=== PATIENT | male | born 1945 | race Caucasian/White ===

== ENCOUNTER 2019-04-02 17:49 | Inpatient (IN) | payer OTHER ==
--- NOTE | 2019-04-02 17:50 | ED Physician Documentation ---
Chest Pain - HISTORIAN Historian: patient - HPI Stated Complaint: shortness of air Chief Complaint: Asthma Onset: days ago (2) Duration: none Last known Well Date: 03/30/19 Last Known Well Time: 08:00 Severity: mild Quality: tightness, aching Chest Pain Radiation: no radiation Chest Pain Signs/Symptoms: dyspnea. denies: nausea, vomiting, diaphoresis, cool extremities, dizziness Worsened By: nothing Relieved By: nothing Further Comments: yes (He states for the last almost week he has had increased shortness of air and feels pressure in his chest. He has known COPD and he has been using his neb machine. He is not sure if he has had a fever but has had increased nasal drainage) - ROS CONST: fever, chills EYES/ENT: denies: sore throat SKIN/ENDO: none NEURO/PSYCH: headache - PAST HX PR risk factors: other (COPD ) GI disease: none Lung disease: COPD Immunizations: UTD Allergies/Adverse Reactions: Allergies Allergy/AdvReac Type Severity Reaction Status Date / Time acetylcysteine Allergy Unknown Verified 04/02/19 18:05 Home Medications: Ambulatory Orders Medication Instructions Recorded Budesonide/Formoterol Fumarate 10.2 gm IH BID 02/16/13 [Symbicort 80-4.5 Mcg Inhaler] Combivent Respimat Inhal [place] 4 gm IH DAILY 02/16/13 Fluticasone Propionate [Flonase] 16 gm NS DAILY 02/16/13 Ranitidine HCl [Zantac] 150 mg PO BID PRN u2 02/16/13 - SOCIAL HX Smoking History: quit greater than 1 year Alcohol Use: none Drug Use: none - FAMILY HX Family HX: none - VITAL SIGNS Vital Signs: Vital Signs Temp Pulse Resp BP Pulse Ox 135/75 10/30/15 10:00 - REVIEWED ASSESSMENTS Nursing Assessment Reviewed: Yes Vitals Reviewed: Yes Progress - Progress Progress: 1900: discussed admission with Dr Keller he is agreeable DG Chest Pain Physical Exam - EXAM General Appearance: mild distress EENT: no signs of dehydration Neck: nml inspection Respiratory: resp.distress (mild - improved air movement mildly post neb ), decreased air movement, rhonchi CVS: reg. rate & rhythm, pulses equal Abdomen: soft, normal bowel sounds, non-tender Skin: warm/dry, normal color Extremities: non-tender, normal range of motion, no evidence of injury, no edema Neuro: oriented X3 Discharge Clincal Impression: Pneumonia Qualifiers: Pneumonia type: due to unspecified organism Laterality: unspecified laterality Lung location: unspecified part of lung Qualified Code(s): J18.9 - Pneumonia, unspecified organism COPD (chronic obstructive pulmonary disease) Qualifiers: COPD type: unspecified COPD Qualified Code(s): J44.9 - Chronic obstructive pulmonary disease, unspecified Condition: Fair Disposition: 09 ADMITTED INPATIENT Decision to Admit: [id number] Date of Decison to Admit: 04/02/19 Decision Time: 19:02
[2019-04-02] MEDS ORDERED: ASPIRIN 81 MG CHEW TAB PO ONE (17:51)
[2019-04-02] MEDS ORDERED: IPRATROPIUM/ALBUTEROL SULFATE 3 ML AMPUL.NEB NEB ONE (17:56)
[2019-04-02] MEDS ORDERED: methylPREDNISolone SOD SUCC 125 MG/2 ML VIAL IVP ONE (17:56)
[2019-04-02 18:04] LABS: BASOPHILS % 0.7 % (0.0-1.5)
--- NOTE | 2019-04-02 18:23 | Diagnostic Imaging Report ---
PATIENT MR#: [id number] PATIENT PATIENT NAME: JANET SOARES DATE OF : 1945 REFERRING PHYSICIAN: Elvira Clarke EXAM DATE: 04/02/2019 ACCESSION NUMBER: [id number] EXAM DESCRIPTION: CHEST 1VIEW Chest, one view History: Chest pain. Findings: The heart size is normal. The lungs are hyperinflated suggesting underlying emphysematous change. There is chronic elevation the right hemidiaphragm present. Possible small nodule seen within the left upper lobe. Right apical pleural thickening present. No pleural effusion or pneumothorax. Impression: 1. Emphysematous change with right apical pleural thickening. 2. Small left upper lobe pulmonary nodule suggested, correlation with previous imaging or follow-up n onemergent CT recommended. Read by: Dr. Dequan Arana Transcribed by: Transcribed Date: Electronically signed by: Dr. Dequan Arana Date signed: 04/02/2019 6:22:30 PM
[2019-04-02 18:27] LABS: eGFR (Non-African) > 60
[2019-04-02] MEDS ORDERED: cefTRIAXone SODIUM 1 GM in 0.9 % SODIUM CHLORIDE 50 ML IV ONE (19:03)
--- NOTE | 2019-04-02 21:07 | History and Physical Report ---
History of Present Illnes - History of Present Illness Reason for Visit: Cough/COPD exacerbation History of Present Illness: This is a 73 year old male admitted with cough and shortness of breath onset this afternoon. He says that he was generally feeling well, but began to cough and thought that he was going to vomit. He was more short of breath and came to the ER for evaluation. He has a history of lung cancer with removal of about 1/4 of one lung. He has not smoked for over 25 years. He has had a low grade fever and is febrile on presentation to the emergency room. - Past Medical History Cardiac: denies: CAD, CHF, HTN Pulmonary: Asthma, COPD [employer] AGENT: denies: CVA Gastrointestinal: GERD Psych: denies: Anxiety, Addictions Endocrine: Hyperthyroidism. denies: Diabetes - Past Surgical History Past Surgical History: Other (left upper lobectomy) - Past Social History Smoke: Quit Alcohol: None Drugs: None Lives: With Family, Other Domestic Violence: Negative - Health Maintenance Health Maintenance: Cholesterol, Other (refer to above) Influenza Vaccine: Current for this Influenza Season Pneumonia Vaccine: Yes Resuscitation Status: Resusciation Status Resuscitation Status Full Code - Unable to Obtain History Unable to Obtain: No Review of Systems - Review of Systems Constitutional: Fever, Chills, Weakness, Malaise Eyes: negative: pain ENT: negative: Ear Pain, Ear Discharge Respiratory: Cough, Shortness of Breath, SOB with Excertion. negative: Hemoptysis Cardiovascular: negative: Chest Pain Gastrointestinal: Nausea. negative: Vomiting Genitourinary: negative: Dysuria Musculoskeletal: negative: Neck Pain Skin: negative: Rash Neurological: Weakness. negative: Confusion, Seizures - Medications/Allergies Allergies/Adverse Reactions: Allergies Allergy/AdvReac Type Severity Reaction Status Date / Time acetylcysteine Allergy Unknown Verified 04/02/19 18:05 Current Inpatient Medications: Current Inpatient Medications Albuterol/Ipratropium (Duoneb) 3 ml NEB Q4 DEANNE Stop: 05/02/19 20:59 Enoxaparin Sodium (Lovenox) 40 mg SQ DAILY DEANNE Stop: 04/16/19 19:59 Fluticasone Propionate (Flonase Nasal [place]) spray IEN DAILY DEANNE Stop: 05/03/19 08:59 Sodium Chloride (Normal Saline) 1,000 mls @ 100 mls/hr IV Q10H DEANNE Stop: 05/02/19 19:14 Azithromycin 500 mg/ Sodium (Chloride) 250 mls @ 250 mls/hr IV Q24H DEANNE Stop: 04/06/19 20:59 Ceftriaxone Sodium 1 gm/ (Sodium Chloride) 50 mls @ 100 mls/hr IV DAILY DEANNE Stop: 05/03/19 08:59 Methylprednisolone Sodium Succinate (Solu-Medrol) 125 mg IVP DAILY DEANNE Stop: 05/03/19 08:59 Miscellaneous (Budesonide/Formoterol Fumarate [Symbicort 80-4.5 Mcg Inhaler]) 10.2 gm IH BID DEANNE Stop: 05/02/19 20:59 Exam - Exam Vital Signs: Vital Signs (72 hours) 04/02/19 04/02/19 04/02/19 17:49 17:50 19:35 Temperature 100.1 F H 97.8 F Pulse Rate 94 H Pulse Rate [ 88 87 Right Pulse ox] Respiratory 16 14 Rate Blood Pressure 148/64 114/52 [Right Arm] O2 Sat by Pulse 92 87 L Oximetry 04/02/19 19:54 Temperature 97.8 F Pulse Rate Pulse Rate [ 87 Right Pulse ox] Respiratory 14 Rate Blood Pressure 113/80 [Right Arm] O2 Sat by Pulse 96 Oximetry General: Alert, Oriented to Person, Oriented to Place, Oriented to Time, Cooperative, Thin HEENT: Atraumatic, PERRLA, EOMI, Mouth Mucous membr. moist/[place] Neck: No: Stridor, Rigidity Lungs: Speaks full Sentences, Respiratory Distress (mild), Wheezes, Prolonged Expiration Cardiovascular: Regular rate Murmur: No: Systolic Murmur Abdomen: Normal bowel sounds, Soft, No tenderness Genitourinary: No: Other Male Genitourinary: No: Other Female Genitourinary: No: Other Integumentary: Normal, [place], Warm, Dry Extremities: No clubbing, No cyanosis, No edema Neurological: Normal speech, Strength Equal Bilat Psych/Mental Status: Mental status NL - Laboratory Results Laboratory Results: Laboratory Results 04/02/19 04/02/19 04/02/19 17:57 17:57 18:50 WBC 15.10 H RBC 5.89 H Hgb 15.8 Hct 46.8 MCV 79.0 L MCH 26.8 L MCHC 33.8 RDW 14.1 Plt Count 290 Neut % (Auto) 79.7 H Lymph % (Auto) 8.7 L [place] % (Auto) 9.7 Eos % (Auto) 1.2 Baso % (Auto) 0.7 Neut # (Auto) 12.0 H Lymph # (Auto) 1.3 [place] # (Auto) 1.5 H Eos # (Auto) 0.2 Baso # (Auto) 0.1 D-Dimer 221 Sodium 142 Potassium 4.1 Chloride 99 Carbon Dioxide 32 H Anion Gap 15.1 BUN 14 Creatinine 1.00 Estimated Creat Clear 47 Est GFR ( Amer) > 60 Est GFR (Non-Af Amer) > 60 Glucose 114 H Lactate 1.4 Calcium 9.4 Total Bilirubin 1.7 H AST 30 ALT 17 Alkaline Phosphatase 90 CK-MB (CK-2) 2.8 Troponin I < 0.012 L Total Protein 8.5 H Albumin 4.7 Assessment/Plan - Assessment/Plan (1) COPD (chronic obstructive pulmonary disease) Status: Acute Current Visit: Yes Qualifiers: COPD type: unspecified COPD Qualified Code(s): J44.9 - Chronic obstructive pulmonary disease, unspecified Assessment: Continue nebulizers, IV steroids (2) GERD (gastroesophageal reflux disease) Status: Acute Current Visit: Yes Qualifiers: Esophagitis presence: esophagitis presence not specified Qualified Code(s): K21.9 - Gastro-esophageal reflux disease without esophagitis Assessment: Start protonix in face of history of GERD and steroid use (3) Hyperthyroidism Status: Acute Current Visit: Yes Assessment: He does not know the name of his medication that he takes for hyperthyroidism (4) Bronchitis Status: Acute Current Visit: No Assessment: Continue current antibiotics (5) DVT prophylaxis Status: Acute Current Visit: Yes Plan: Start Lovenox VTE Assessment - RISK FACTOR SCORE VTE RISK FACTOR SCORES: AGE OVER 60 YEARS, ACUTE RESPIRATORY FAILURE/SEVERE COPD - RISK VTE MODERATE RISK: SCORE OF 2 (RISK PROXIMAL DVT 2-4%) PROPHYAXIS NEEDED (On Lovenox)
[2019-04-02] MEDS ORDERED: AZITHROMYCIN 500 MG VIAL IV ONE (21:36)
[2019-04-02] MEDS ORDERED: BUDESONIDE 0.5MG/2ML AMPUL.NEB NEB ONE (21:36)
[2019-04-02] MEDS ORDERED: 0.9 % SODIUM CHLORIDE 250 ML IV ONE (21:37)
[2019-04-02] MEDS: AZITHROMYCIN 500 MG in 0.9 % SODIUM CHLORIDE 250 ML IV SCH (21:41)
[2019-04-02] MEDS: ENOXAPARIN SODIUM 40 MG/0.4 ML DISP.SYRIN SQ SCH (21:58)
[2019-04-02] MEDS: BUDESONIDE IH SCH (22:14)
[2019-04-02] MEDS: [UNRECOGNIZED DRUG - OTHER] IH SCH (22:14)
[2019-04-02] MEDS: IPRATROPIUM/ALBUTEROL SULFATE 3 ML AMPUL.NEB NEB SCH (22:14)
[2019-04-02] MEDS: 0.9 % SODIUM CHLORIDE 1,000 ML IV SCH (22:14)
[2019-04-02] MEDS: FORMOTEROL FUMARATE IH SCH (22:14)
[2019-04-02 22:38] LABS: APPEARANCE,URINE CLEAR (CLEAR); COLOR,URINE YELLOW (YELLOW); OCCULT BLOOD,URINE NEGATIVE (NEGATIVE); PH URINE 6.5 (5.0 - 8.0)
[2019-04-03 00:20] VITALS: BMI 18.3
[2019-04-03] MEDS: IPRATROPIUM/ALBUTEROL SULFATE 3 ML AMPUL.NEB NEB SCH ×6 (02:05→20:34)
[2019-04-03] MEDS: 0.9 % SODIUM CHLORIDE 1,000 ML IV SCH ×2 (02:06→17:43)
[2019-04-03] MEDS: PANTOPRAZOLE SODIUM 40 MG TABLET.DR PO SCH (05:22)
[2019-04-03] MEDS: [UNRECOGNIZED DRUG - OTHER] IH SCH ×2 (05:23→09:55)
[2019-04-03] MEDS: FORMOTEROL FUMARATE IH SCH ×2 (05:23→09:55)
[2019-04-03] MEDS: BUDESONIDE IH SCH ×2 (05:23→09:55)
[2019-04-03 05:41] LABS: BASOPHILS % 0.1 % (0.0-1.5); NEUTROPHILS # 6.1 # k/uL (1.4-7.7)
[2019-04-03 05:42] LABS: eGFR (Non-African) > 60
--- NOTE | 2019-04-03 07:40 | Diagnostic Imaging Report ---
PATIENT MR#: [id number] PATIENT PATIENT NAME: JANET SOARES DATE OF : 1945 REFERRING PHYSICIAN: Porter Keller EXAM DATE: 04/03/2019 ACCESSION NUMBER: [id number] EXAM DESCRIPTION: CHEST 2VIEW Chest, PA and lateral History: Emphysema Findings: Lungs are hyper-inflated, consistent with emphysema. Heart size and pulmonary vascularity a re normal. There is no pneumothorax or pleural effusion. 10 mm density superimposes the left upper lobe. Malignancy is no t excluded and computed tomography is recommended for further evaluation. Impression: Left upper lobe density; further evaluation recommended. Emphysema. Read by: Dr. Brian Alfaro Transcribed by: Transcribed Date: Electronically signed by: Dr. Brian Alfaro Date signed: 04/03/2019 7:39:30 AM
[2019-04-03] MEDS ORDERED: cefTRIAXone SODIUM 1 GM INJ ONE (09:33)
[2019-04-03] MEDS ORDERED: 0.9 % SODIUM CHLORIDE 50 ML IV ONE (09:33)
[2019-04-03] MEDS: ENOXAPARIN SODIUM 40 MG/0.4 ML DISP.SYRIN SQ SCH (09:43)
[2019-04-03] MEDS: cefTRIAXone SODIUM 1 GM in 0.9 % SODIUM CHLORIDE 50 ML IV SCH (09:48)
[2019-04-03] MEDS: methylPREDNISolone SOD SUCC 125 MG/2 ML VIAL IVP SCH (09:57)
--- NOTE | 2019-04-03 11:00 | Inpatient Progress Note ---
Subjective - Required Recertification Statement I anticipate X number of days because-include discharge plan: 1 - Review of Systems Events since last encounter: Patient is breathing better today. His chest X ray shows more clearly a left upper lobe mass that was not clearly delineated last night. His labs look good today. He has not been up and ambulated. Radiology recommends a CT chest to evaluate this further. General: Denies: Chills, Night Sweats HEENT: Denies: Head Aches Pulmonary: Dyspnea, Cough Cardiovascular: Denies: Chest Pain Gastrointestinal: Denies: Nausea, Vomiting Genitourinary: Denies: Dysuria Musculoskeletal: Denies: Neck Pain Neurological: Denies: Weakness Objective - Exam Vitals and I&O: Vital Signs Temp 97.7 F 04/03/19 09:18 Pulse 78 04/03/19 09:18 Resp 22 04/03/19 09:18 BP 113/65 04/03/19 09:18 Pulse Ox 99 04/03/19 09:18 Intake & Output 04/02/19 04/02/19 04/03/19 11:59 23:59 11:59 Intake Total 360 1760 Output Total 300 900 Balance 60 860 Weight 49.895 kg Intake: IV 1100 Right Antecubital 1100 Oral 360 660 Output: Urine 300 900 Other: Voiding Method Toilet Toilet # Voids 2 # Bowel Movements 0 General: Alert, Oriented to Person, Oriented to Place, Oriented to Time HEENT: Atraumatic, PERRLA Neck: Supple Lungs: Wheezes, Prolonged Expiration Cardiovascular: Regular rate, Normal S1, Normal S2 Abdomen: Normal bowel sounds Extremities: No clubbing, No cyanosis, No edema Skin: Normal, [place], Warm Neurological: Normal speech Psych/Mental Status: Mental status NL - Results Results: Laboratory Results WBC 6.80 K/ul (4.00-12.00) 04/03/19 05:10 RBC 4.57 M/ul (3.90-5.20) 04/03/19 05:10 Hgb 12.5 g/dL (12.0-18.0) 04/03/19 05:10 Hct 36.3 % (37.0-53.0) L 04/03/19 05:10 MCV 79.0 fl (80.0-100.0) L 04/03/19 05:10 MCH 27.4 pg (28.0-34.0) L 04/03/19 05:10 MCHC 34.5 g/dL (30.0-36.0) 04/03/19 05:10 RDW 14.2 % (11.3-14.3) 04/03/19 05:10 Plt Count 229 K/mm3 (130-400) 04/03/19 05:10 Neut % (Auto) 88.9 % (39.0-79.0) H 04/03/19 05:10 Lymph % (Auto) 7.6 % (16.0-50.0) L 04/03/19 05:10 [place] % (Auto) 2.7 % (0.0-11.0) 04/03/19 05:10 Eos % (Auto) 0.7 % (0.0-6.8) 04/03/19 05:10 Baso % (Auto) 0.1 % (0.0-1.5) 04/03/19 05:10 Neut # (Auto) 6.1 # k/uL (1.4-7.7) 04/03/19 05:10 Lymph # (Auto) 0.5 # k/uL (0.6-4.0) L 04/03/19 05:10 [place] # (Auto) 0.2 # k/uL (0.0-0.9) 04/03/19 05:10 Eos # (Auto) 0.1 # k/uL (0.0-0.6) 04/03/19 05:10 Baso # (Auto) 0.0 # k/uL (0.0-0.5) 04/03/19 05:10 D-Dimer 221 ng/mL (6.0-682) 04/02/19 17:57 Sodium 138 mmol/L (137-145) 04/03/19 05:10 Potassium 4.3 mmol/L (3.5-5.1) 04/03/19 05:10 Chloride 106 mmol/L (98-107) 04/03/19 05:10 Carbon Dioxide 24 mmol/L (22-30) 04/03/19 05:10 Anion Gap 12.3 04/03/19 05:10 BUN 15 mg/dL (9-20) 04/03/19 05:10 Creatinine 0.69 mg/dL (0.66-1.25) 04/03/19 05:10 Estimated Creat Clear 69 04/03/19 05:10 Est GFR ( Amer) > 60 (60-) 04/03/19 05:10 Est GFR (Non-Af Amer) > 60 (60-) 04/03/19 05:10 Glucose 151 mg/dL (74-106) H 04/03/19 05:10 Lactate 1.4 U/L (0.7-2.1) 04/02/19 18:50 Calcium 8.5 mg/dL (8.4-10.2) 04/03/19 05:10 Total Bilirubin 0.9 mg/dL (0.2-1.3) 04/03/19 05:10 AST 25 U/L (15-46) 04/03/19 05:10 ALT 13 U/L (0-50) 04/03/19 05:10 Alkaline Phosphatase 61 U/L (38-126) 04/03/19 05:10 CK-MB (CK-2) 2.8 ng/mL (0.0-5.6) 04/02/19 17:57 Troponin I < 0.012 ng/mL (0.012-0.034) L 04/02/19 17:57 Total Protein 5.8 g/dL (6.3-8.2) L 04/03/19 05:10 Albumin 3.3 g/dL (3.5-5.0) L 04/03/19 05:10 Urine Color Yellow (YELLOW) 04/02/19 19:25 Urine Appearance Clear (CLEAR) 04/02/19 19:25 Urine pH 6.5 (5.0 - 8.0) 04/02/19 19:25 Ur Specific [place] 1.020 (1.010-1.030) 04/02/19 19:25 Urine Protein 1+ mg/dL (NEGATIVE) H 04/02/19 19:25 Urine Ketones Negative mg/dL (NEGATIVE) 04/02/19 19:25 Urine Occult Blood Negative (NEGATIVE) 04/02/19 19:25 Urine Nitrite Negative (NEGATIVE) 04/02/19 19:25 Urine Bilirubin 1+ (NEGATIVE) H 04/02/19 19:25 Urine Urobilinogen 2.0 Eu (0.2-1.0) H 04/02/19 19:25 Ur Leukocyte Esterase Negative (NEGATIVE) 04/02/19 19:25 Urine Glucose Negative mg/dL (NEGATIVE) 04/02/19 19:25 Assessment/Plan - Assessment/Plan (1) COPD (chronic obstructive pulmonary disease) Status: Acute Current Visit: Yes Qualifiers: COPD type: unspecified COPD Qualified Code(s): J44.9 - Chronic obstructive pulmonary disease, unspecified (2) GERD (gastroesophageal reflux disease) Status: Acute Current Visit: Yes Qualifiers: Esophagitis presence: esophagitis presence not specified Qualified Code(s): K21.9 - Gastro-esophageal reflux disease without esophagitis (3) Hyperthyroidism Status: Acute Current Visit: Yes (4) Bronchitis Status: Acute Current Visit: No Assessment: Continue current antibiotics (5) DVT prophylaxis Status: Acute Current Visit: Yes Assessment: On Lovenox (6) Pulmonary nodule Status: Acute Current Visit: Yes Assessment: CT chest with contrast
--- NOTE | 2019-04-03 11:57 | Diagnostic Imaging Report ---
PATIENT MR#: [id number] PATIENT PATIENT NAME: JANET SOARES DATE OF : 1945 REFERRING PHYSICIAN: Porter Keller EXAM DATE: 04/03/2019 ACCESSION NUMBER: [id number] EXAM DESCRIPTION: CT CHEST W/ CONTRAST ADDENDUM: The left lung nodules most likely a malignant nodule. PET CT or biopsy is recommended Exam: CT chest with contrast. History: Abnormal chest x-ray. Axial images through the thorax are submitted along with sagittal and coronal reformatted images. Lung antunez are hyperaerated with flattening of the diaphragms noted. Linear scarring in the right l ower lobe is noted. A lobulated nodular density in the left upper lobe measures 1.7 x 1.5 by 1.3 cm in size. The thoraci c aorta is associated with atherosclerotic plaque and is of normal caliber. The mainstem pulmonary artery is al so normal in caliber. No significant mediastinal or axillary adenopathy is noted. No bony abnormalities are iden tified. Impression: Emphysematous changes. Lobulated nodular density in the left upper lobe is measured above. Linear scarring in the right lower lobe. No significant mediastinal adenopathy is noted. Read by: Dr. Stanton Way Transcribed by: Transcribed Date: Electronically signed by: Dr. Stanton Way Date signed: 04/05/2019 3:35:40 PM
[2019-04-03] MEDS: FLUTICASONE PROPIONATE 120 SPRAY/16 GR BOTTLE IEN SCH (13:41)
--- NOTE | 2019-04-03 16:34 | Inpatient Progress Note ---
Subjective - Required Recertification Statement I anticipate X number of days because-include discharge plan: 1 - Review of Systems Events since last encounter: CT of the chest shows what appears to be a lung cancer in the left upper lobe. Initial read simply stated that it was a "lobulated nodular density in the left upper lobe", howver when I called radiology back, I spoke to Stanton Way MD, and he stated that this appears to be a malignancy. I discussed this with the pat you, his , and their daughter Eva. I also called and spoke to Dr. Pulido to make her aware of these findings and faxed her a copy of the CT scan. Objective - Exam Vitals and I&O: Vital Signs Temp 98.1 F 04/03/19 14:00 Pulse 89 04/03/19 16:00 Resp 20 04/03/19 14:00 BP 107/53 04/03/19 14:00 Pulse Ox 97 04/03/19 14:00 Intake & Output 04/02/19 04/03/19 04/03/19 23:59 11:59 23:59 Intake Total 360 1760 1180 Output Total 300 900 300 Balance 60 860 880 Weight 49.895 kg Intake: IV 1100 700 Right Antecubital 1100 700 Oral 360 660 480 Output: Urine 300 900 300 Other: Voiding Method Toilet Toilet Toilet # Voids 2 # Bowel Movements 0 - Results Results: Laboratory Results WBC 6.80 K/ul (4.00-12.00) 04/03/19 05:10 RBC 4.57 M/ul (3.90-5.20) 04/03/19 05:10 Hgb 12.5 g/dL (12.0-18.0) 04/03/19 05:10 Hct 36.3 % (37.0-53.0) L 04/03/19 05:10 MCV 79.0 fl (80.0-100.0) L 04/03/19 05:10 MCH 27.4 pg (28.0-34.0) L 04/03/19 05:10 MCHC 34.5 g/dL (30.0-36.0) 04/03/19 05:10 RDW 14.2 % (11.3-14.3) 04/03/19 05:10 Plt Count 229 K/mm3 (130-400) 04/03/19 05:10 Neut % (Auto) 88.9 % (39.0-79.0) H 04/03/19 05:10 Lymph % (Auto) 7.6 % (16.0-50.0) L 04/03/19 05:10 [place] % (Auto) 2.7 % (0.0-11.0) 04/03/19 05:10 Eos % (Auto) 0.7 % (0.0-6.8) 04/03/19 05:10 Baso % (Auto) 0.1 % (0.0-1.5) 04/03/19 05:10 Neut # (Auto) 6.1 # k/uL (1.4-7.7) 04/03/19 05:10 Lymph # (Auto) 0.5 # k/uL (0.6-4.0) L 04/03/19 05:10 [place] # (Auto) 0.2 # k/uL (0.0-0.9) 04/03/19 05:10 Eos # (Auto) 0.1 # k/uL (0.0-0.6) 04/03/19 05:10 Baso # (Auto) 0.0 # k/uL (0.0-0.5) 04/03/19 05:10 D-Dimer 221 ng/mL (6.0-682) 04/02/19 17:57 Sodium 138 mmol/L (137-145) 04/03/19 05:10 Potassium 4.3 mmol/L (3.5-5.1) 04/03/19 05:10 Chloride 106 mmol/L (98-107) 04/03/19 05:10 Carbon Dioxide 24 mmol/L (22-30) 04/03/19 05:10 Anion Gap 12.3 04/03/19 05:10 BUN 15 mg/dL (9-20) 04/03/19 05:10 Creatinine 0.69 mg/dL (0.66-1.25) 04/03/19 05:10 Estimated Creat Clear 69 04/03/19 05:10 Est GFR ( Amer) > 60 (60-) 04/03/19 05:10 Est GFR (Non-Af Amer) > 60 (60-) 04/03/19 05:10 Glucose 151 mg/dL (74-106) H 04/03/19 05:10 Lactate 1.4 U/L (0.7-2.1) 04/02/19 18:50 Calcium 8.5 mg/dL (8.4-10.2) 04/03/19 05:10 Total Bilirubin 0.9 mg/dL (0.2-1.3) 04/03/19 05:10 AST 25 U/L (15-46) 04/03/19 05:10 ALT 13 U/L (0-50) 04/03/19 05:10 Alkaline Phosphatase 61 U/L (38-126) 04/03/19 05:10 CK-MB (CK-2) 2.8 ng/mL (0.0-5.6) 04/02/19 17:57 Troponin I < 0.012 ng/mL (0.012-0.034) L 04/02/19 17:57 Total Protein 5.8 g/dL (6.3-8.2) L 04/03/19 05:10 Albumin 3.3 g/dL (3.5-5.0) L 04/03/19 05:10 Urine Color Yellow (YELLOW) 04/02/19 19:25 Urine Appearance Clear (CLEAR) 04/02/19 19:25 Urine pH 6.5 (5.0 - 8.0) 04/02/19 19:25 Ur Specific [place] 1.020 (1.010-1.030) 04/02/19 19:25 Urine Protein 1+ mg/dL (NEGATIVE) H 04/02/19 19:25 Urine Ketones Negative mg/dL (NEGATIVE) 04/02/19 19:25 Urine Occult Blood Negative (NEGATIVE) 04/02/19 19:25 Urine Nitrite Negative (NEGATIVE) 04/02/19 19:25 Urine Bilirubin 1+ (NEGATIVE) H 04/02/19 19:25 Urine Urobilinogen 2.0 Eu (0.2-1.0) H 04/02/19 19:25 Ur Leukocyte Esterase Negative (NEGATIVE) 04/02/19 19:25 Urine Glucose Negative mg/dL (NEGATIVE) 04/02/19 19:25 Assessment/Plan - Assessment/Plan (1) COPD (chronic obstructive pulmonary disease) Status: Acute Current Visit: Yes Qualifiers: COPD type: unspecified COPD Qualified Code(s): J44.9 - Chronic obstructive pulmonary disease, unspecified (2) GERD (gastroesophageal reflux disease) Status: Acute Current Visit: Yes Qualifiers: Esophagitis presence: esophagitis presence not specified Qualified Code(s): K21.9 - Gastro-esophageal reflux disease without esophagitis (3) Hyperthyroidism Status: Acute Current Visit: Yes (4) Bronchitis Status: Acute Current Visit: No (5) DVT prophylaxis Status: Acute Current Visit: Yes (6) Pulmonary nodule Status: Acute Current Visit: Yes (7) Lung malignancy Status: Acute Current Visit: Yes Assessment: Dr. Pulido aware and she make appropriate referrals.
[2019-04-03] MEDS: AZITHROMYCIN 500 MG in 0.9 % SODIUM CHLORIDE 250 ML IV SCH (20:33)
[2019-04-03] MEDS: FLUTICASONE/SALMETEROL 250-50 INHALER IH SCH (20:35)
[2019-04-04] MEDS: IPRATROPIUM/ALBUTEROL SULFATE 3 ML AMPUL.NEB NEB SCH ×4 (01:33→13:40)
[2019-04-04] MEDS: 0.9 % SODIUM CHLORIDE 1,000 ML IV SCH (04:43)
[2019-04-04] MEDS: PANTOPRAZOLE SODIUM 40 MG TABLET.DR PO SCH (05:12)
--- NOTE | 2019-04-04 07:06 | Diagnostic Imaging Report ---
PATIENT MR#: [id number] PATIENT PATIENT NAME: JANET SOARES DATE OF : 1945 REFERRING PHYSICIAN: Porter Keller EXAM DATE: 04/04/2019 ACCESSION NUMBER: [id number] EXAM DESCRIPTION: CHEST 2VIEW Chest, PA and lateral History: Emphysema Findings: The lungs are hyper-inflated in there is flattening of the diaphragms, consistent with emph ysema. There is no pneumothorax or pleural effusion. Heart size and mediastinum are normal. Right apical pleural thicken ing is present. Previously described left lung density is obscured by monitoring electrode. Since April 03 2019, no change has occurred. Impression: Emphysema and chronic changes. Read by: Dr. Brian Alfaro Transcribed by: Transcribed Date: Electronically signed by: Dr. Brian Alfaro Date signed: 04/04/2019 7:05:34 AM
[2019-04-04] MEDS: ENOXAPARIN SODIUM 40 MG/0.4 ML DISP.SYRIN SQ SCH (08:47)
[2019-04-04] MEDS: cefTRIAXone SODIUM 1 GM in 0.9 % SODIUM CHLORIDE 50 ML IV SCH (08:50)
--- NOTE | 2019-04-04 08:56 | Discharge Summary ---
Discharge Summary - Discharge [facility] Admission Date: 04/02/19 Discharge Date: 04/04/19 Discharge To: Home History of Present Illness: 73 year old male admitted with acute onset of shortness of breath. He has a history of COPD and lung cancer. He has not smoked for 25 years. Initial CXR did not clearly demonstrate a nodule in his lung, however follow up CXR did show a lesion. CT scan with contrast was performed and this was highly suspicious for malignancy. Condition at Discharge: Stable Home Medications: Ambulatory Orders Medication Instructions Recorded Budesonide/Formoterol Fumarate 10.2 gm IH BID 02/16/13 [Symbicort 80-4.5 Mcg Inhaler] Combivent Respimat Inhal [place] 4 gm IH DAILY 02/16/13 Fluticasone Propionate [Flonase] 16 gm NS DAILY 02/16/13 Ranitidine HCl [Zantac] 150 mg PO BID PRN u2 02/16/13 Consultations this Visit: None Procedures this Visit: None Allergies/Adverse Reactions: Allergies Allergy/AdvReac Type Severity Reaction Status Date / Time acetylcysteine Allergy Unknown Verified 04/02/19 18:05 Patient Problems: Current Active Problems Problem Status Onset COPD (chronic obstructive pulmonary disease) Acute DVT prophylaxis Acute GERD (gastroesophageal reflux disease) Acute Hyperthyroidism Acute Lung malignancy Acute Pneumonia Acute Pulmonary nodule Acute Discharge Summary: He was continued on steroids as well as ceftriaxine. Discharged on ceftin 250 mg po BID x 7 days. Follow up next week with Dr. Pulido for referral for treatment of his lung nodule. - Final Diagnosis (1) COPD (chronic obstructive pulmonary disease) Problems: Chronic, progressive (7) Lung malignancy Problems: Follow up with Dr. Pulido regarding his suspicious lesion on his left lung. I have spoken with her and faxed a copy of his CT scan to her. I discussed with the family the urgency of following up on this lesion and they have voiced their plan to do so. He has seen Dr. Barreto at [facility] in the past for his previous lung cancer.
[2019-04-04] MEDS: FLUTICASONE PROPIONATE 120 SPRAY/16 GR BOTTLE IEN SCH (08:57)
[2019-04-04] MEDS: FLUTICASONE/SALMETEROL 250-50 INHALER IH SCH (08:58)
[2019-04-04] MEDS: methylPREDNISolone SOD SUCC 125 MG/2 ML VIAL IVP SCH (09:00)
[2019-04-04 14:04] VITALS: BP 135/71
== END 2019-04-04 14:45 | disposition home or self-care (01) | DRG 194 ==
LOC: ED 17:49 → SOUTH 19:07
PROVIDERS: ADMIT Family Medicine; ATTEND Family Medicine
DX: J18.9 Pneumonia, unspecified organism (principal); J44.0 Chronic obstructive pulmonary disease with (acute) lower respiratory infection; C34.12 Malignant neoplasm of upper lobe, left bronchus or lung; J20.9 Acute bronchitis, unspecified; K21.9 Gastro-esophageal reflux disease without esophagitis; E21.3 Hyperparathyroidism, unspecified; Z88.8 Allergy status to other drugs, medicaments and biological substances; Z87.891 Personal history of nicotine dependence; Z79.51 Long term (current) use of inhaled steroids; Z79.899 Other long term (current) drug therapy; Z85.118 Personal history of other malignant neoplasm of bronchus and lung; Z90.2 Acquired absence of lung [part of]
CPT/HCPCS: 71045; 71046; 71260; 80053; 81002; 82553; 83605; 84484; 85025; 85379; 87040; J0456; J0696; J1650; J2930; J7030; J7050; J7626; 93005; 99221; 99222; 99231; 99238; Q9967; S1016